=== PATIENT | male | born 1955 | race Caucasian/White ===

== ENCOUNTER → 2017-01-08 | Outpatient (CLI) | payer OTHER ==
[~2017-01-08] MED LIST: AZOR 5-20 MG T1 EACH PO; CIPROFLOXACIN500 M3 PO; CLONIDINE HCL0.2 M2 PO; FAMOTIDINE 20 M20 MG PO; NIACIN100 GM; PERCOCET 7.5-31 EACH PO; POTASSIUM20 PO; WELCHOL 625 MG625 MG PO
== END ==
LOC: RAD 08:55
DX: M47.896 Other spondylosis, lumbar region (principal); M54.16 Radiculopathy, lumbar region

== ENCOUNTER → 2017-08-06 | Outpatient (CLI) | payer OTHER ==
[~2017-08-06] MED LIST changes: +ACTOS 45 MG45 M1 PO; +COZAAR 50 MG TA50 M2 PO; +CRESTOR20 MG PO; +GLIPIZIDE 10 MG10 MG PO; +METFORMIN HCL500 MG PO; +OXYCODON-ACETA1 EAC1 PO; +POTASSIUM GLUCO99 M2 PO
== END ==
LOC: MRI 07-31 10:53
DX: M54.16 Radiculopathy, lumbar region (principal); M48.061 Spinal stenosis, lumbar region without neurogenic claudication; M51.26 Other intervertebral disc displacement, lumbar region; M43.16 Spondylolisthesis, lumbar region; M25.80 Other specified joint disorders, unspecified joint

== ENCOUNTER → 2017-09-02 | Outpatient (CLI) | payer OTHER ==
[~2017-09-02] VITALS: Ht 175.3 cm; Wt 131.1 kg
--- NOTE | ~2017-09-02 | CATHLAB ---
[facility] [place] [address] INVASIVE PROCEDURE REPORT Name: LEIGHANN FONG Room #: REG Lucretia#: [id number] Admission: 09/02/17 Attend Phys: Chico Bailey, Discharge: Date of : 51 Date of Service: 09/02/17 1759 Report #: [id number] THIS REPORT FOR: //name// APPROVED REPORT Patient Details Patient Status: In-Patient Room #: The patient is a 62 year-old male Event Personnel Chico Bailey Gate Operator, Kam Lira RN, Elvie Grider RTR, CHIDI Saucedo, Carlos Brown Monitor Procedures Performed Left Heart Cath w/or w/o Coronaries [id number] [facility] Aortogram Abdominal Peripheral Angio [id number] Procedure Narrative The Right Groin^ was infiltrated with 1% Lidocaine subcutaneous anesthesia. A PINNACLE 6FR Sheath #[id number] sheath was inserted into the RFA^. Coronary angiography was performed using coronary diagnostic catheters. The right coronary system was accessed and visualized with a JR4 catheter. The left coronary system was accessed and visualized with a JL4 catheter. The left ventricle was accessed and visualized with a PITAIL catheter. Left ventriculogram was performed in 30 degree projection. Closure device was deployed with a 6 Fr MYNXGRIP 6/7F #[id number]. The patient tolerated the procedure well and there were no complications associated with the procedure. There was no hematoma. Intraoperative Conscious Sedation Sedation start time: 8.37 Case end Time: 8.52 Fentanyl mcg Versed mg Fluoro Time: 1.59 minutes Dose: 700 mGy Contrast Type and Amount: Omnipaque 125 ml Hemodynamics The aortic pressure is 124/74 mmHg with a mean of 102 mmHg. The left ventricular pressure is 125/12 mmHg with a mean of mmHg. The left ventricular end diastolic pressure is 19 mmHg. Conclusion [facility] [place] [address] INVASIVE PROCEDURE REPORT Name: LEIGHANN FONG Room #: [facility] KAT Boykin#: [id number] Admission: 09/02/17 Attend Phys: Chico Bailey, Discharge: Date of : 51 Date of Service: 09/02/17 1759 Report #: [id number] #1 normal left ventricular size and systolic function EF 55-60% #2 left main mildly calcified is large giving rise to LAD and circumflex widely patent #3 LAD with proximal calcification 3040% irregularities and diffuse distal disease no high-grade occlusive disease #4 codominant circumflex. Mildly disease the distal OM branch has an 80% lesion which is filling a small to moderate area in the inferior lateral wall #5 smaller codominant right his mild diffuse disease #6 abdominal aorta is intact with mild irregularity renal arteries are patent no aneurysm is noted Recommendations and plan: Continue aggressive risk factor modification. Patient has back surgery upcoming would allow that to continue as he's very incapacitated from his back disease and having some motor symptoms. We will add low-dose beta hannah 25 mg a day Will consider intervention to third OM branch post surgery. We'll reevaluate and office 2-3 months. Okay to proceed with back surgery. <ELECTRONICALLY SIGNED> By: Chico Bailey MD, FACC 09/02/171758 58 58 Chico Bailey MD, FACC /INF
--- NOTE | ~2017-09-02 | EKG ---
[place] [address] [facility] [employer] [address] ELECTROCARDIOGRAM REPORT Name: LEIGHANN FONG [id number] Admission: 09/02/17 Attend Phys: Chico Bailey MD, Discharge: Date of : 51 Report #: [id number] THIS REPORT FOR: //name// [facility] Test Date: 2017-09-02 Test Time: 07:00:57 Pat Name: LEIGHANN FONG Department: Room: Gender: Lapping Machine Tender: Chanel SMITH : 1955 Requested By: Chico Bailey Order Number: [id number] MD: Huang Zurita Measurements Intervals [place] Rate: 72 P: 10 [place]: 148 QRS: -7 QRSD: 93 T: -1 QT: 369 QTc: 404 Interpretive Statements Sinus rhythm Inferior infarct, old Compared to ECG 04/08/2013 07:47:19 No significant change was found Electronically Signed On 09-02-2017 9:06:33 TREADLE CUT OFF SAW OPERATOR by Huang Zurita [email or web address] <ELECTRONICALLY SIGNED> By: Huang Zurita MD, [facility] 09/02/17905 9 9 Huang Zurita MD, [facility] /EPI
[2017-09-02 07:18] VITALS: BP 124/76
[2017-09-02 07:34] LABS: HEMATOCRIT 43.1 % (42.0-52.0); HEMOGLOBIN 14.4 gm/dL (14.0-18.0); MCH 29.7 pg (26.0-34.0); MCHC 33.5 g/dL (28.0-37.0); MCV 88.8 fL (80.0-100.0); RBC 4.85 mil/uL (4.50-6.00); RDW 14.7 % (10.5-14.5); WBC 9.6 thou/uL (4.0-11.0)
[2017-09-02 07:37] LABS: CALCIUM 8.8 mg/dL (8.5-10.1); CREATININE 0.8 mg/dL (0.7-1.3); POTASSIUM 3.7 mmol/L (3.5-5.1)
== END | disposition home or self-care (01) ==
LOC: CATH 06:41
PROVIDERS: Internal Medicine Cardiovascular Disease
DX: I25.10 Atherosclerotic heart disease of native coronary artery without angina pectoris (principal); I10 Essential (primary) hypertension; Z98.890 Other specified postprocedural states; E78.00 Pure hypercholesterolemia, unspecified; E11.9 Type 2 diabetes mellitus without complications; Z82.49 Family history of ischemic heart disease and other diseases of the circulatory system; K21.9 Gastro-esophageal reflux disease without esophagitis; Z87.891 Personal history of nicotine dependence

== ENCOUNTER → 2018-05-24 | Outpatient (CLI) | payer OTHER | LOC: RAD 14:16 | DX: S89.92XA Unspecified injury of left lower leg, initial encounter (principal); S89.91XA Unspecified injury of right lower leg, initial encounter; M11.261 Other chondrocalcinosis, right knee; V89.2XXA Person injured in unspecified motor-vehicle accident, traffic, initial encounter; Y93.89 Activity, other specified; Y92.89 Other specified places as the place of occurrence of the external cause; Y99.8 Other external cause status ==

== ENCOUNTER → 2019-03-08 | Outpatient (CLI) | payer OTHER | LOC: RAD 14:54 | DX: M47.816 Spondylosis without myelopathy or radiculopathy, lumbar region (principal); M48.061 Spinal stenosis, lumbar region without neurogenic claudication; M43.26 Fusion of spine, lumbar region ==

== ENCOUNTER → 2020-02-16 | Outpatient (CLI) | payer OTHER | LOC: LAB 07:53 | PROVIDERS: ATTEND Neuromusculoskeletal Medicine & OMM | DX: Z20.828 Contact with and (suspected) exposure to other viral communicable diseases (principal); R05 Cough; R06.02 Shortness of breath ==

== ENCOUNTER → 2021-06-14 | Outpatient (CLI) | payer OTHER | LOC: RAD 16:30 | PROVIDERS: ATTEND Nurse Practitioner | DX: M25.511 Pain in right shoulder (principal) ==